=== PATIENT | female | born 1985 | race African-American/Black ===

== ENCOUNTER 2020-10-13 13:12 | Emergency (ER) | payer MEDICAID ==
[~2020-10-13] VITALS: Ht 160 cm; Wt 66.2 kg
[2020-10-13 13:18] VITALS: BP 140/65
[2020-10-13] MEDS ORDERED: DEXAMETHASONE 4 MG TABLET PO ONE (14:00)
[2020-10-13] MEDS ORDERED: DEXAMETHASONE 4 MG TABLET ONE (14:10)
== END 2020-10-13 14:41 | disposition home or self-care (01) ==
LOC: ED 14:17
DX: U07.1 COVID-19 (principal); J06.9 Acute upper respiratory infection, unspecified; J18.9 Pneumonia, unspecified organism; R51.9 Headache, unspecified; M79.10 Myalgia, unspecified site; R05 Cough; R06.00 Dyspnea, unspecified; R00.0 Tachycardia, unspecified
CPT/HCPCS: 71045; 87635; 93005; 99285